=== PATIENT | male | born 1950 | race Caucasian/White ===

== ENCOUNTER 2017-07-03 15:03 | Emergency (ER) | payer MEDICARE, OTHER ==
[~2017-07-03] VITALS: Ht 167.6 cm; Wt 96.5 kg
[~2017-07-03 15:03] MED LIST: BENA10TA48 PO; NIFE30TA60 PO
[2017-07-03 15:06] VITALS: Ht 167.6 cm; Wt 96.5 kg
[2017-07-03] MEDS ORDERED: ACETAMINOPHEN 325 MG TAB PO ONE (15:30)
[2017-07-03] MEDS ORDERED: ACET500C5 PO (15:32)
[2017-07-03] MEDS ORDERED: AMOX500C2 PO (15:32)
--- NOTE | 2017-07-03 15:38 | ERD ---
ER Documentation Chief Complaint Date/Time DATE: 07/03/17 TIME: 15:36 Chief Complaint Complains of a lexis throat x 1 week HPI 66-year-old male presents with sore throat for last week. Denies any vomiting, chest pain, shortness of breath. He complains of some pain on the neck on the right side as well. Denies any fevers. Patient denies any tobacco use or smoking. ROS All systems reviewed and are negative except as per history of present illness. Medications Home Meds Active Scripts Acetaminophen* (Tylophen*) 500 Mg Capsule, 1 CAP PO Q6H Y for PAIN AND OR ELEVATED TEMP, #15 CAP Prov:PHILIP BOWDEN MD 07/03/17 Amoxicillin* (Amoxicillin*) 500 Mg Cap, 500 MG PO TID for 10 Days, CAP Prov:PHILIP BOWDEN MD 07/03/17 Reported Medications Nifedipine* (Nifedipine ER*) 30 Mg Tablet.sa, 30 MG PO DAILY, TAB.SA 01/16/15 Benazepril Hcl* (Benazepril Hcl*) 10 Mg Tablet, 10 MG PO DAILY, TAB 01/16/15 Allergies Allergies: Coded Allergies: No Known Allergy (Unverified , 01/16/15) PMhx/Soc History of Surgery: Yes (LUE FISTULA.) Anesthesia Reaction: No Hx Neurological Disorder: No Hx Respiratory Disorders: No Hx Cardiac Disorders: No Hx Psychiatric Problems: No Hx Miscellaneous Medical Probl: No Hx Alcohol Use: Yes (beer occassional) Hx Substance Use: No Hx Tobacco Use: No Physical Exam Vitals Vital Signs Date Time Temp Pulse Resp B/P Pulse Ox O2 Delivery O2 Flow Rate FiO2 07/03/17 15:06 98.4 95 20 154/73 94 Physical Exam Const: [] Alert, [id number]. Head: Atraumatic Eyes: Normal Conjunctiva ENT: Normal External Ears, Nose and Mouth. Edema in the posterior oropharynx primarily on the right side with an inflamed tonsil. There is tender right anterior cervical lymphadenitis as well. Airways patent uvula midline. Neck: Full range of motion..~ No meningismus. Resp: Clear to auscultation bilaterally Cardio: Regular rate and rhythm, no murmurs Abd: Soft, non tender, non distended. Normal bowel sounds Skin: No petechiae or rashes Back: No midline or flank tenderness Ext: No cyanosis, or edema Neur: Awake and alert Psych: Normal Mood and Affect Result Diagram: 07/03/17 1610 07/03/17 1610 Results 24 hrs Laboratory Tests Test 07/03/17 16:10 07/03/17 16:15 White Blood Count 6.410^3/ul Red Blood Count 3.2010^6/ul Hemoglobin 10.7g/dl Hematocrit 31.5% Mean Corpuscular Volume 98.4fl Mean Corpuscular Hemoglobin 33.4pg Mean Corpuscular Hemoglobin Concent 34.0g/dl Red Cell Distribution Width 13.2% Platelet Count 51031^3/UL Mean Platelet Volume 9.4fl Neutrophils % 74.4% Lymphocytes % 12.5% Monocytes % 10.3% Eosinophils % 2.0% Basophils % 0.6% Nucleated Red Blood Cells % 0.0/100WBC Neutrophils # 4.810^3/ul Lymphocytes # 0.810^3/ul Monocytes # 0.710^3/ul Eosinophils # 0.110^3/ul Basophils # 0.010^3/ul Nucleated Red Blood Cells # 0.010^3/ul Sodium Level 138mmol/L Potassium Level 4.2mmol/L Chloride Level 94mmol/L Carbon Dioxide Level 31mmol/L Anion Gap 17 Blood Urea Nitrogen 19mg/dl Creatinine 4.16mg/dl Glucose Level 69mg/dl Calcium Level 10.0mg/dl Total Bilirubin 0.1mg/dl Direct Bilirubin 0.00mg/dl Indirect Bilirubin 0.1mg/dl Aspartate Amino Transf (AST/SGOT) 25IU/L Alanine Aminotransferase (ALT/SGPT) 35IU/L Alkaline Phosphatase 103IU/L Total Protein 7.9g/dl Albumin 4.4g/dl Globulin 3.50g/dl Albumin/Globulin Ratio 1.25 Urine Color YELLOW Urine Clarity CLEAR Urine pH 9.0 Urine Specific [place] 1.010 Urine Ketones NEGATIVEmg/dL Urine Nitrite NEGATIVEmg/dL Urine Bilirubin NEGATIVEmg/dL Urine Urobilinogen NEGATIVEmg/dL Urine Leukocyte Esterase NEGATIVELeu/ul Urine Microscopic RBC 2/HPF Urine Microscopic WBC 14/HPF Urine Hemoglobin NEGATIVEmg/dL Urine Glucose NEGATIVEmg/dL Urine Total Protein 3+mg/dl Current Medications Medications (Trade) Dose Ordered Sig/Clementine Route PRN Reason Start Time Stop Time Status Last Admin Dose Admin Acetaminophen (Tylenol Tab) 650 mg ONCE ONCE PO 07/03/17 15:30 07/03/17 15:31 DC 07/03/17 15:35 Procedures/MDM Resents with a sore throat for last week with some erythema and lymphadenitis. We will treat with amoxicillin and Tylenol and return precautions and primary care follow-up. No evidence of abscess or airway obstruction. Patient presents with some sensation of weakness over the last few days and is requesting evaluation for this. CBC shows no acute abnormalities and CMP shows improved creatinine from previous visits with no additional acute abnormalities except for minimally low glucose. Patient had dialysis this morning. Patient was given juice for slightly low blood sugar. The patient was stable with no new complaints during the ER course. Clinically, there is no current evidence to suggest meningitis, sepsis, acute abdomen, pneumonia, acute coronary syndrome , ketoacidosis, pulmonary embolism, or any other emergent condition appearing to require further evaluation or hospitalization. The patient should certainly return for any new or worsening symptoms per the aftercare instructions. They should otherwise follow-up with her primary care doctor for reevaluation this week. Departure Diagnosis: Primary Impression: Sore throat Condition: Stable Patient Instructions: Pharyngitis, Strep (Presumed) Additional Instructions: Cheque otro vez con schafer doctor primario en el proximo adam or regresa para mas o nueva simptomas. PHILIP BOWDEN MD Jul 03, 2017 15:38
[2017-07-03 16:17] LABS: BASOPHILS % 0.6 % (0.0-2.0); EOSINOPHILS # 0.1 10^3/ul (0.0-0.5); HEMATOCRIT 31.5 % (42.0-52.0); HEMOGLOBIN 10.7 g/dl (14.0-18.0); LYMPHOCYTES # 0.8 10^3/ul (0.8-2.9); LYMPHOCYTES % 12.5 % (15.0-51.0); MEAN CORPUSCULAR HEMOGLOBIN 33.4 pg (29.0-33.0); MEAN CORPUSCULAR VOLUME 98.4 fl (82.0-101.0); MEAN PLATELET VOLUME 9.4 fl (7.4-10.4); MONOCYTE # 0.7 10^3/ul (0.3-0.9); MONOCYTES % 10.3 % (0.0-11.0); NEUTROPHIL # 4.8 10^3/ul (1.6-7.5); NEUTROPHILS % 74.4 % (39.0-77.0); PLATELET COUNT 220 10^3/UL (140-415); RED CELL DISTRIBUTION WIDTH 13.2 % (11.5-14.5); WHITE BLOOD COUNT 6.4 10^3/ul (4.8-10.8)
[2017-07-03 16:46] LABS: ADD UMIC YES; UR ASCORBIC ACID NEGATIVE (NEGATIVE); UR BILIRUBIN (Dip) NEGATIVE (NEGATIVE); UR BLOOD (Dip) NEGATIVE (NEGATIVE); UR CLARITY CLEAR (CLEAR); UR COLOR YELLOW (YELLOW); UR GLUCOSE (Dip) NEGATIVE (NEGATIVE); UR KETONES (Dip) NEGATIVE (NEGATIVE); UR LEUKOCYTE ESTERASE (Dip) NEGATIVE Leu/ul (NEGATIVE); UR NITRITE (Dip) NEGATIVE (NEGATIVE); UR RBC 2 /HPF (0-5); UR TOTAL PROTEIN (Dip) 3+ mg/dl (NEGATIVE); UR UROBILINOGEN (Dip) NEGATIVE (NEGATIVE)
[2017-07-03 16:50] LABS: ALBUMIN 4.4 g/dl (3.3-4.9); ALBUMIN/GLOBULIN RATIO 1.25; BILIRUBIN,INDIRECT 0.1 mg/dl (0-1.1); BILIRUBIN,TOTAL 0.1 mg/dl (0.2-1.3); CREATININE 4.16 mg/dl (0.61-1.24); POTASSIUM 4.2 mmol/L (3.5-5.1); TOTAL PROTEIN 7.9 g/dl (6.1-8.1)
[2017-07-03 17:24] VITALS: BP 143/80; PULSE 89; RESP 18
== END 2017-07-03 17:25 | disposition home or self-care (01) ==
LOC: FTE 15:03
DX: J02.9 Acute pharyngitis, unspecified (principal)
CPT/HCPCS: 80053; 81001; 85025; 99283

== ENCOUNTER 2017-12-18 17:15 | Inpatient (IN) | END 2017-12-21 15:38 | disposition home or self-care (01) | DRG 313 ==

== ENCOUNTER 2017-12-30 02:08 | Inpatient (IN) | END 2018-01-06 16:30 | DRG 871 ==

== ENCOUNTER 2018-04-13 15:06 | Inpatient (IN) | END 2018-04-18 21:10 | disposition home or self-care (01) | DRG 515 ==

== ENCOUNTER 2019-05-25 14:29 | Emergency (ER) | payer MEDICARE, OTHER ==
[~2019-05-25] VITALS: Ht 174.8 cm; Wt 78.9 kg
[~2019-05-25 14:29] MED LIST changes: +AMLO-147 PO; -BENA10TA48 PO; +CLON1PAT2 TD; +HYDR-3672 PO; +LABE100T7 PO; +LISI10TA2 PO; +METO-448 PO; +MINO2.5T16 PO; +NEPH PO; -NIFE30TA60 PO; +RANI150T35 PO; +SVL800C PO; +TIZA2TAB PO; +TRAM50TA PO
[2019-05-25 14:37] VITALS: Ht 174.8 cm; Wt 78.9 kg
[2019-05-25] MEDS ORDERED: ONDANSETRON (ODT) 4 MG TAB ODT STA (15:19)
[2019-05-25] MEDS ORDERED: traMADol 50 MG TAB PO ONE (15:30)
[2019-05-25 16:31] VITALS: BP 151/70; PULSE 78; RESP 15
== END 2019-05-25 17:01 | disposition home or self-care (01) ==
LOC: E/R 14:29
DX: S79.912A Unspecified injury of left hip, initial encounter (principal); I13.2 Hypertensive heart and chronic kidney disease with heart failure and with stage 5 chronic kidney disease, or end stage renal disease; I50.9 Heart failure, unspecified; N18.6 End stage renal disease; F17.210 Nicotine dependence, cigarettes, uncomplicated; W01.0XXA Fall on same level from slipping, tripping and stumbling without subsequent striking against object, initial encounter; Y92.9 Unspecified place or not applicable; Z99.2 Dependence on renal dialysis
CPT/HCPCS: 72192; 73700